=== PATIENT | female | born 1960 | race Caucasian/White ===

== ENCOUNTER 2017-10-09 14:19 | Emergency (ER) | payer MEDICARE ==
[~2017-10-09] VITALS: Ht 162.6 cm; Wt 56.7 kg
--- OUTSIDE RECORDS SUMMARY | 2017-10-09 14:22 | XMS REPORT | Clinical Summary ---
Author Author Weippe Yazidi [facility] Yazidi Address Unknown Phone Unavailable Care Team Providers Care Lance Crewmember/Mlrs Sergeant Name Role Phone Asked, Pcp PCP Unavailable Allergies Active Allergy Reactions Severity Noted Date Comments Lamotrigine 04/01/2017 Latex 04/01/2017 Sulfa (Sulfonamide 04/01/2017 Antibiotics) Current Medications No known medications Active Problems Problem Noted Date Abdominal pain 04/01/2017 Encounters Date Type Specialty Care Team Description 04/02/2017 Orders Only Urology Mich Cross MD 04/02/2017 Anesthesia Urology Bk Hope, DO Event 04/02/2017 Procedure Pass Urology 04/02/2017 Surgery Urology Melissa Dias MD CYSTO, LEFT URETEROSCOPY AND LASER LITHOTRIPSY, LEFT URETERAL STENT EXCHANGE, STONE BASKETING 04/01/2017 [facility] General Internal Medicine EvaSpencer stark MD Generalized abdominal - Encounter pain (Primary Dx) 04/06/2017 04/01/2017 Documentation Urology Melissa Dias MD after 10/08/2016 Social History Tobacco Use Types Packs/Day Years Used Date Current Every Day Smoker Cigarettes 1 20 Tobacco Cessation: Ready to Quit: No; Counseling Given: No Alcohol Use Drinks/Week oz/Week Comments No Sex Assigned at Date Recorded Not on file Last Filed Vital Signs Vital Sign Reading Time Taken Blood Pressure 97/65 04/06/2017 7:39 AM CDT Pulse 105 04/06/2017 7:39 AM CDT Temperature 36.3 C (97.4 F) 04/06/2017 7:39 AM CDT Respiratory Rate 16 04/06/2017 7:39 AM CDT Oxygen Saturation 99% 04/06/2017 7:39 AM CDT Inhaled Oxygen - - Concentration Weight 61.7 kg (136 lb) 04/01/2017 8:37 PM CDT Height 162.6 cm (5' 4") 04/01/2017 8:37 PM CDT Body Mass Index 23.34 04/01/2017 8:37 PM CDT Plan of Treatment Health Maintenance Due Date Last Done Comments PAP SMEAR 1981 COLONOSCOPY 2010 MAMMOGRAM 2010 SHINGRIX VACCINE (#1) 2010 INFLUENZA VACCINE 01/13/2018 Implants Implanted Type Area Java [employer] Developer Device Expiration Model / Identifier Date Serial / Lot Stent Uretl S-Flx Kwart Peripheral Left: N/A [employer] 2019 [id number] / Retro-Inject 6fr 26cm - [id number] or Biliary / Implanted: Qty: 1 on 04/02/2017 by Stents [id number] Melissa Dias MD Procedures Procedure Name Priority Date/Time Associated Diagnosis Comments ANESTHESIA INTUBATION Routine 04/02/2017 12:26 PM CDT Procedure Note - Bk Hope, - 04/02/2017 12:26 PM CDT Airway Performed by: BK HOPE Authorized by: BK HOPE Location: OR Performed by: anesthesio logist Preoxygena wanda with 100% O2: Yes C-spine Precaution s Maintained Throughout : Yes Mask Ventilatio n: Easy mask Final Airway Type: Supraglott ic airway Final LMA: Classic LMA Size: 4 Number of Attempts at Approach: 1 CYSTO, LEFT URETEROSCOPY 04/02/2017 LEFT KIDNEY STONE AND LASER LITHOTRIPSY, 11:45 AM CDT LEFT URETERAL STENT EXCHANGE, STONE BASKETING after 10/08/2016 Results * POC glucose (04/05/2017 4:59 PM) Only the most recent of 2 results within the time period is included. Component Value Ref Range POC glucose 108 (H) 65 - 99 mg/dL Comment: [facility] Notified RN Meter ID: [id number] Rn Cardiovascular Icu: Miller Robles Specimen Performing Laboratory [facility] DEPARTMENT OF PATHOLOGY AND GENOMIC MEDICINE [address] [place] [id number] * Estimated GFR (04/05/2017 1:20 PM) Only the most recent of 4 results within the time period is included. Component Value Ref Range GFR Non Af Amer 74 mL/min/1.73 m2 GFR Af Amer 90 mL/min/1.73 m2 Comment: Chronic kidney disease: <60 mL/min/1.73m2 Kidney failure: <15 mL/min/1.73m2 The estimated GFR is calculated from the IDMS-traceable Modification of Diet in Renal Disease Equation. The accuracy of the calculation is poor when the creatinine is normal. Calculated values >90 mL/min/1.73m2 are not reported. This equation has not been validated in children (<18 years), women, the elderly (>70 years), or ethnic groups other than Caucasians and Americans. Specimen Performing Laboratory Plasma specimen [facility] PATHOLOGY AND [facility] MEDICINE [address] [place] [address] * Magnesium level (04/05/2017 1:20 PM) Only the most recent of 2 results within the time period is included. Component Value Ref Range Magnesium 1.5 (L) 1.6 - 2.6 mg/dL Specimen Performing Laboratory Plasma specimen [facility] [place] [address] * Basic metabolic panel (04/05/2017 1:20 PM) Only the most recent of 2 results within the time period is included. Component Value Ref Range Sodium 140 135 - 148 mEq/L Potassium 3.3 (L) 3.5 - 5.0 mEq/L Chloride 103 98 - 112 mEq/L CO2 25 24 - 31 mEq/L Anion gap 12 7 - 15 mEq/L Comment: Starting from September , anion gap calculation no longer incorporates potassium. Please note the change. BUN 11 6 - 20 mg/dL Creatinine 0.8 0.5 - 0.9 mg/dL Glucose 92 65 - 99 mg/dL Calcium 8.8 8.3 - 10.2 mg/dL Specimen Performing Laboratory Plasma specimen [facility] DEPARTMENT OF PATHOLOGY AND [facility] MEDICINE [address] [place] [address] * Surgical pathology request (04/02/2017 3:50 PM) Component Value Ref Range Surgical pathology report See link below for PDF Lab Report Specimen Performing Laboratory [facility] [place] [address] Narrative [id number] LEFT URETERAL STONE * FL < 1 Hour (04/02/2017 1:15 PM) Specimen Performing Laboratory [place] [id number] Narrative EXAMINATION:FL 1 HOUR START - 1230 FINISH - 1315 FLUORO - 17 SEC 5.1 mGR 0 FILMS CYSTOSCOPY MAIN OR CYSTO 2 AM IMPRESSION: Fluoroscopy was requested in the Endoscopy Suite. Separate endoscopy report will be issued by the physician performing the procedure. Procedure Note Interface, Radiology Results Incoming - 04/07/2017 5:55 PM CDT EXAMINATION: FL 1 HOUR START - 1230 FINISH - 1315 FLUORO - 17 SEC 5.1 mGR 0 FILMS CYSTOSCOPY MAIN OR CYSTO 2 AM IMPRESSION: Fluoroscopy was requested in the Endoscopy Suite. Separate endoscopy report will be issued by the physician performing the procedure. * Calculi analysis with photo (04/02/2017 12:53 PM) Component Value Ref Range Calculi mass 6 mg Calculi number Numerous Calculi size 1 to 4 mm Calculi descrption See Note Comment: Specimen consists of numerous, small, brown/anne, irregular calculi fragments. Calculi composition See Note Comment: Calculi composed primarily of: 50% calcium oxalate dihydrate, and 50% calcium phosphate (hydroxy- and carbonate- apatite). INTERPRETIVE INFORMATION: Calculi (Stone) analysis Calculi are the products of physiological processes that yield crystalline compounds in a matrix of biological compounds and blood. Matrix components are not reported. The clinically significant crystalline components identified in calculi specimens are reported. Gross description may not be consistent with composition determined by FTIR analysis. EER calculi (stone) See Note analysis and photo Comment: Access [facility] Enhanced Report using either link below: -Direct access: [email or web address] -Enter Username, Password: [email or web address] [email or web address] Password: [email or web address] Performed by [place], [address] [place] [id number] [email or web address], Jack Colon MD - Lab. Director Specimen Performing Laboratory [facility] [address] [place] [address] Narrative [id number] LEFT URETERAL STONE * XR Abdomen 1 Vw (04/02/2017 10:11 AM) Specimen Performing Laboratory [facility] [address] [facility] [place] [address] Narrative EXAMINATION:XR ABDOMEN 1 VW CLINICAL HISTORY:ABDOMINAL PAIN COMPARISON:None. IMPRESSION: Stent is present left ureter Approximately 1.2 cm stone is present immediately adjacent to the proximal coil portion of the stent. No other definite calcifications along the course of the stent 3 mm stone in the right kidney Phleboliths are present in the pelvis. Degenerative changes are present throughout the bony structures without evidence of a suspicious focal lesion. There is a nonspecific bowel gas pattern. No free air is identified. [id number] Procedure Note Interface, Radiology Results Incoming - 04/02/2017 10:22 AM CDT EXAMINATION: XR ABDOMEN 1 VW CLINICAL HISTORY: ABDOMINAL PAIN COMPARISON: None. IMPRESSION: Stent is present left ureter Approximately 1.2 cm stone is present immediately adjacent to the proximal coil portion of the stent. No other definite calcifications along the course of the stent 3 mm stone in the right kidney Phleboliths are present in the pelvis. Degenerative changes are present throughout the bony structures without evidence of a suspicious focal lesion. There is a nonspecific bowel gas pattern. No free air is identified. [id number] * CT Abdomen Pelvis Wo Contrast (04/02/2017 9:40 AM) Specimen Performing Laboratory [facility] [address] [place] [address] Narrative EXAMINATION:CT ABDOMEN PELVIS WO CONTRAST CLINICAL HISTORY:pain TECHNIQUE:Multiple axial images of the abdomen and pelvis were obtained without intravenous administration of iodinated contrast. Sagittal and coronal computerized reformatted images were also obtained. The lack of intravenous contrast reduces the sensitivity of detecting solid organ disease. Scan was performed using radiation dose reduction techniques. COMPARISON:None FINDINGS: Left ureteral stent is in expected position. There is a 11 x 6 mm stone in the left renal pelvis directly abutting the proximal pigtail of the ureteral stent. Couple of punctate calyceal stones are also present in the left upper and lower poles. There is mild left hydronephrosis and peripelvic and proximal periureteral stranding. 4 mm stone in the right kidney upper pole. No right hydronephrosis. Limited parenchymal evaluation without contrast. 1.5 cm hypodensity in the posterior left upper pole is likely a cyst. There is also a small cyst in anterior segment 3 of the liver. Unremarkable gallbladder, pancreas, and spleen. No suspicious bowel thickening or dilatation. No free fluid or fluid collection. IMPRESSION: Bilateral nephrolithiasis, including 11 x 6 mm left renal pelvic stone. Mild left hydronephrosis and peripelvic/periureteral stranding. Left ureteral stent is in place. [facility]-[id number] Procedure Note [facility], Radiology Results Incoming - 04/02/2017 10:22 AM CDT EXAMINATION: CT ABDOMEN PELVIS WO CONTRAST CLINICAL HISTORY: pain TECHNIQUE: Multiple axial images of the abdomen and pelvis were obtained without intravenous administration of iodinated contrast. Sagittal and coronal computerized reformatted images were also obtained. The lack of intravenous contrast reduces the sensitivity of detecting solid organ disease. Scan was performed using radiation dose reduction techniques. COMPARISON: None FINDINGS: Left ureteral stent is in expected position. There is a 11 x 6 mm stone in the left renal pelvis directly abutting the proximal pigtail of the ureteral stent. Couple of punctate calyceal stones are also present in the left upper and lower poles. There is mild left hydronephrosis and peripelvic and proximal periureteral stranding. 4 mm stone in the right kidney upper pole. No right hydronephrosis. Limited parenchymal evaluation without contrast. 1.5 cm hypodensity in the posterior left upper pole is likely a cyst. There is also a small cyst in anterior segment 3 of the liver. Unremarkable gallbladder, pancreas, and spleen. No suspicious bowel thickening or dilatation. No free fluid or fluid collection. IMPRESSION: Bilateral nephrolithiasis, including 11 x 6 mm left renal pelvic stone. Mild left hydronephrosis and peripelvic/periureteral stranding. Left ureteral stent is in place. [facility]-[id number] * Comprehensive metabolic panel (04/02/2017 4:00 AM) Only the most recent of 2 results within the time period is included. Component Value Ref Range Sodium 138 135 - 148 mEq/L Potassium 3.3 (L) 3.5 - 5.0 mEq/L Chloride 99 98 - 112 mEq/L CO2 25 24 - 31 mEq/L Anion gap 14 7 - 15 mEq/L Comment: Starting from September , anion gap calculation no longer incorporates potassium. Please note the change. BUN 9 6 - 20 mg/dL Creatinine 1.1 (H) 0.5 - 0.9 mg/dL Glucose 102 (H) 65 - 99 mg/dL Calcium 9.1 8.3 - 10.2 mg/dL Protein 5.9 (L) 6.3 - 8.3 g/dL Comment: [facility] 4.6-7.0 g/dL 1 week 4.4-7.6 g/dL 7 months-1year 5.1-7.3 g/dL 1-2 years 5.6-7.5 g/dL >3 years 6.0-8.0 g/dL 18-150 6.3-8.3 g/dL Albumin 2.9 (L) 3.5 - 5.0 g/dL A/G ratio 1.0 0.7 - 3.8 Alkaline phosphatase 68 35 - 104 U/L AST 14 10 - 35 U/L ALT 12 5 - 50 U/L Total bilirubin <0.2 0.0 - 1.2 mg/dL Specimen Performing Laboratory Plasma specimen [facility] DEPARTMENT OF PATHOLOGY AND GENOMIC MEDICINE [address] [place] [id number] * Urine drugs of abuse screen (04/02/2017 1:29 AM) Component Value Ref Range Amphetamine screen, urine Positive (A) Barbiturate screen, urine Negative Benzodiazepine screen, Negative urine Cannabinoid screen, urine Negative Cocaine screen, urine Negative Methadone metabolite Negative (EDDP), urine Opiates screen, urine Positive (A) Oxycodone screen, urine Negative Phencyclidine screen, Negative urine Tricyclic screen, urine Negative Comment: Drug screen minimum concentration of detectability Amphetamines 1000 ng/mL Barbiturates 200 ng/mL Benzodiazepines 300 ng/mL Cocaine 300 ng/mL Methadone 3 00 ng/mL Opiates 300 ng/mL Oxycodone 3 00 ng/mL Phencyclidine 25 ng/mL Cannabinoids 50 ng/mL Tricyclics 1000 ng/mL Negative test results indicates presumptive evidence of lack of clinically significant drug concentration in this urine specimen. Positive test results are presumptive evidence of clinically significant drug concentration in this urine specimen. Testing performed for medical purposes only. Specimen Performing Laboratory Urine [facility] DEPARTMENT OF PATHOLOGY AND [facility] MEDICINE [address] [place] [id number] * CBC with platelet and differential (04/01/2017 6:45 PM) Component Value Ref Range WBC 8.26 4.50 - 11.00 k/uL RBC 4.63 4.20 - 5.50 m/uL HGB 13.9 12.0 - 16.0 g/dL HCT 42.5 37.0 - 47.0 % MCV 91.8 82.0 - 100.0 fL MCH 30.0 27.0 - 34.0 pg MCHC 32.7 31.0 - 37.0 g/dL RDW - SD 49.1 37.0 - 55.0 fL MPV 9.3 8.8 - 13.2 fL Platelet count 313 150 - 400 k/uL Nucleated RBC 0.00 /100 WBC Neutrophils 69.2 (H) 39.0 - 69.0 % Lymphocytes 22.0 (L) 25.0 - 45.0 % Monocytes 6.3 0.0 - 10.0 % Eosinophils 1.7 0.0 - 5.0 % Basophils 0.6 0.0 - 1.0 % Immature granulocytes 0.2Comment: "Immature granulocytes" 0.0 - 1.0 % (promyelocytes, myelocytes, metamyelocytes) Specimen Performing Laboratory Blood [facility] DEPARTMENT OF PATHOLOGY AND GENOMIC MEDICINE [address] [place] [id number] * Thyroid stimulating hormone (04/01/2017 6:16 PM) Component Value Ref Range TSH 1.51 0.27 - 4.20 uIU/mL Specimen Performing Laboratory Plasma specimen [facility] DEPARTMENT OF PATHOLOGY AND GENOMIC MEDICINE [address] [place] [id number] * T4, free (04/01/2017 6:16 PM) Component Value Ref Range T4, free 1.0 0.9 - 1.7 ng/dL Specimen Performing Laboratory Plasma specimen [facility] DEPARTMENT OF PATHOLOGY AND GENOMIC MEDICINE [address] [place] [phone] * Lipase level (04/01/2017 6:16 PM) Component Value Ref Range Lipase 28 13 - 60 U/L Specimen Performing Laboratory Plasma specimen [facility] DEPARTMENT OF PATHOLOGY AND GENOMIC MEDICINE [address] [place] [address] * Amylase level (04/01/2017 6:16 PM) Component Value Ref Range Amylase 19 13 - 53 U/L Specimen Performing Laboratory Plasma specimen [facility] DEPARTMENT OF PATHOLOGY AND GENOMIC MEDICINE [address] [place] [phone] after 10/08/2016 Insurance Payer Benefit Subscriber ID Type Phone Address Plan / Group MEDICARE MEDICARE xxxxxxxxxx Medicare [place], [place] PART A AND B
[2017-10-09] MEDS ORDERED: ASPIRIN 81 MG CHEW TAB PO STA (14:52)
[2017-10-09] MEDS ORDERED: PANTOPRAZOLE 40 MG 10ML VIAL IV STA (14:52)
[2017-10-09 15:01] LABS: BASOPHILS # (AUTO) 0.1 (0.0-0.1); BASOPHILS % 0.8 % (0.0-1.0); EOSINOPHILS # (AUTO) 0.2 (0.0-0.4); EOSINOPHILS % 3.2 % (0.0-6.0); HEMATOCRIT 39.3 % (34.2-44.1); HEMOGLOBIN 13.4 g/dL (12.0-16.0); LYMPHOCYTES # (AUTO) 2.2 (1.0-3.2); LYMPHOCYTES % 36.9 % (18.0-39.1); MEAN CORPUSCULAR HEMOGLOBIN 30.5 pg (28-32); MEAN CORPUSCULAR HGB CONC 34.1 g/dL (31-35); MEAN CORPUSCULAR VOLUME 89.3 fL (81-99); MONOCYTES # (AUTO) 0.4 (0.2-0.8); NEUTROPHILS # (AUTO) 3.2 (2.1-6.9); NEUTROPHILS % 52.8 % (38.7-80.0); PLATELET COUNT 312 x10e3/uL (140-360); RED CELL DISTRIBUTION WIDTH 12.8 % (11.7-14.4)
[2017-10-09 15:16] LABS: INR 0.93; PROTHROMBIN TIME 11.7 seconds (11.9-14.5)
[2017-10-09 15:17] LABS: PARTIAL THROMBOPLASTIN TIME 26.4 seconds (23.8-35.5)
[2017-10-09 15:27] LABS: ALANINE AMINOTRANSFERASE 17 IU/L (0-55); ALBUMIN 3.7 g/dL (3.5-5.0); ALBUMIN/GLOBULIN RATIO 1.2 (0.8-2.0); ALKALINE PHOSPHATASE 82 IU/L (40-150); BLOOD UREA NITROGEN 18 mg/dL (7-26); BUN/CREATININE RATIO 21 (6-25); CARBON DIOXIDE 25 mmol/L (22-29); CHLORIDE 105 mmol/L (98-107); CREATINE KINASE 81 IU/L (29-168); CREATININE, SERUM 0.86 mg/dL (0.57-1.11); EST GLOMERULAR FILTRATION RATE > 60 ML/MIN (60-); GLUCOSE 92 mg/dL (74-118); LIPASE 38 U/L (8-78); MAGNESIUM 1.6 MG/DL (1.3-2.1); SODIUM 138 mmol/L (136-145)
--- NOTE | 2017-10-09 16:10 | Diagnostic Imaging Report ---
PROCEDURE: Frontal and lateral views of the chest. COMPARISON: None. INDICATIONS: CHEST PAIN FINDINGS: Lines/tubes: None. Lungs: The lungs are well inflated and clear. There is no evidence of pneumonia or pulmonary edema. Pleura: There is no pleural effusion or pneumothorax. Heart and mediastinum: The heart and the mediastinum are normal. Bones: No acute bony abnormality. IMPRESSION: 1. No acute cardiopulmonary disease. Dictated by: Junior Rubio M.D. on 10/09/2017 at 16:11 Electronically approved by: Junior Rubio M.D. on 10/09/2017 at 16:11
== END 2017-10-09 19:35 | disposition home or self-care (01) ==
LOC: ER 14:19
DX: R20.2 Paresthesia of skin (principal)
CPT/HCPCS: 36415; 71046; 80053; 82550; 82553; 83690; 83735; 84484; 85025; 85610; 85730; 93005; 99284